=== PATIENT | female | born 1955 | race Caucasian/White ===

== ENCOUNTER 2024-07-25 06:00 | Day surgery (SDC) | payer MEDICARE, BC ==
[2024-07-24 16:01] LABS: BASOPHILS % (AUTO) 0.5 % (0-1); EOSINOPHILS # (AUTO) 0.1 X10'3 (0-0.9); EOSINOPHILS % (AUTO) 1.1 % (0-6); HEMATOCRIT 43.6 % (35.0-45.0); HEMOGLOBIN 14.4 g/dl (12.0-16.0); LYMPHOCYTES # (AUTO) 1.8 X10'3 (1.1-4.8); LYMPHOCYTES % (AUTO) 18.7 % (21-51); MEAN CORPUSCULAR HEMOGLOBIN 28.1 PG (27.0-31.0); MEAN CORPUSCULAR VOLUME 85.2 FL (78-98); MEAN PLATELET VOLUME 8.8 FL (7.4-10.4); MONOCYTES # (AUTO) 0.6 X10'3 (0-0.9); MONOCYTES % (AUTO) 5.9 % (2-12); NEUTROPHILS # (AUTO) 7.1 X10'3 (1.8-7.7); NEUTROPHILS % (AUTO) 73.8 % (42-75); PLATELET COUNT 307 X10'3 (140-440); RED BLOOD COUNT 5.11 X10'6 (4.20-5.60); RED CELL DISTRIBUTION WIDTH 14.5 % (11.5-14.5); WHITE BLOOD COUNT 9.6 X10'3 (4.5-11.0)
[2024-07-24 16:08] LABS: ALBUMIN 3.1 G/DL (3.4-5.0); ANION GAP 8 (8-16); BLOOD UREA NITROGEN 15 MG/DL (7-18); CALCIUM 9.1 MG/DL (8.5-10.1); CHLORIDE 106 MMOL/L (99-107); CREATININE 0.75 MG/DL (0.40-0.90); GLUCOSE 169 MG/DL (70-104); POTASSIUM 3.9 MMOL/L (3.5-5.1); SODIUM 141 MMOL/L (135-145); TOTAL CARBON DIOXIDE 27.1 MMOL/L (24-32); eGFR 77 ML/MIN
[2024-07-24 16:12] LABS: APTT 25 SECONDS (22-32); PROTHROMBIN TIME 10.2 SECONDS (9.0-12.0)
[~2024-07-25] VITALS: Ht 167.6 cm; Wt 119.0 kg
[2024-07-25] VITALS (14 sets, daily range): BP systolic 98–154; BP diastolic 48–66; PULSE 69–82; RESP 12–18; TEMP 97; O2SAT 92–100
[~2024-07-25 06:00] MED LIST: AMLO1TAB36 PO; ATOR10TA PO; CARV6.253 PO; CLOP75TA15 PO; DEXT1TAB13 PO; FURO-150 PO; INSU100V9 SQ; METF500T PO; NAPR220T67 PO
[2024-07-25] MEDS ORDERED: ATOR10TA70 PO (06:37)
[2024-07-25] MEDS ORDERED: CARV6.2555 PO (06:37)
[2024-07-25] MEDS ORDERED: LOSA100T58 PO (06:41)
[2024-07-25] MEDS ORDERED: AMLO5TAB16 PO (06:41)
[2024-07-25] MEDS ORDERED: LANTUS SQ (06:42)
[2024-07-25] MEDS ORDERED: CHOL10006 PO (06:44)
[2024-07-25] MEDS ORDERED: ASPI-529 (06:44)
[2024-07-25] MEDS ORDERED: EMPA25TA PO (06:44)
[2024-07-25] MEDS: LORazepam 0.5 MG tablet PO PRN (07:09)
[2024-07-25] MEDS: normal saline 1,000 ML IV SCH (07:10)
[2024-07-25] MEDS: diphenhydrAMINE 25mg capsule PO PRN (07:10)
[2024-07-25] MEDS ORDERED: LIDOcaine 1% (10mg/ml) 2ml vial ONE (07:18)
[2024-07-25] MEDS ORDERED: midazolam 1 mg/ML 2ml injection ONE (07:18)
[2024-07-25] MEDS ORDERED: verapamil 2.5 mg/ml inj IV ONE (07:18)
[2024-07-25] MEDS ORDERED: iohexol 350 MG/ML 50ML vial IV ONE (07:19)
[2024-07-25] MEDS ORDERED: heparin 1,000unit/ml 10ml vial 10 ML ONE (07:19)
[2024-07-25] MEDS ORDERED: iohexol 350MG/ML 100ml bottle IV ONE ×2 (07:19→08:09)
[2024-07-25] MEDS ORDERED: fentaNYL/PF 50MCG/1 ML 2ML syringe ONE (07:19)
[2024-07-25] MEDS ORDERED: nitroGLYCERIN 500mcg/5mL D5W 5 ML IV ONE ×2 (07:19→08:39)
[2024-07-25] MEDS ORDERED: heparin 25,000 UNIT/250ml bag 250 ML IV ONE (08:08)
[2024-07-25] MEDS ORDERED: clopidogrel 300mg tablet ONE (08:42)
[2024-07-25] MEDS ORDERED: aspirin 81mg tab.chew ONE (08:55)
[2024-07-25] MEDS ORDERED: aspirin 81mg tab.chew PO ONE (09:35)
[2024-07-25] MEDS ORDERED: aspirin 81mg, enteric-coated 1 TAB TABLET.DR PO ONE (09:35)
[2024-07-25] MEDS ORDERED: clopidogrel 300mg tablet PO ONE (09:35)
[2024-07-25] MEDS: potassium Cl 20 mEq SR tablet PO STA (12:11)
[2024-07-25] MEDS: magnesium oxide 400mg tablet PO ONE (12:11)
[2024-07-25] MEDS ORDERED: ATOR20TA PO (15:01)
[2024-07-25] MEDS ORDERED: CLOP75TA34 PO (15:01)
[2024-07-25] MEDS ORDERED: ASPI81TA52 PO (15:01)
[2024-07-25 15:29] LABS: ISTAT HGB MIX 13.9 g/dl (12.0-16.0); ISTAT Hct MIX 41 %PCV (35-45); ISTAT O2 SATURATION MIX VENOUS 91 % (60-80); ISTAT SOURCE BLNK
[2024-07-26] MEDS ORDERED: clopidogrel 75mg tablet PO SCH (08:00)
[2024-07-30 08:26] LABS: ISTAT HGB MIX 13.9 g/dl (12.0-16.0); ISTAT Hct MIX 41 %PCV (35-45); ISTAT O2 SATURATION MIX VENOUS 65 % (60-80); ISTAT SOURCE BLNK
== END 2024-07-25 17:05 | disposition home or self-care (01) ==
LOC: SSTAY O 06:00
PROVIDERS: ATTEND Internal Medicine Cardiovascular Disease
DX: I25.10 Atherosclerotic heart disease of native coronary artery without angina pectoris (principal); I49.3 Ventricular premature depolarization; I10 Essential (primary) hypertension; E11.9 Type 2 diabetes mellitus without complications; E78.5 Hyperlipidemia, unspecified; E66.3 Overweight; M19.90 Unspecified osteoarthritis, unspecified site; Z79.82 Long term (current) use of aspirin; Z79.02 Long term (current) use of antithrombotics/antiplatelets; Z79.84 Long term (current) use of oral hypoglycemic drugs; Z79.899 Other long term (current) drug therapy; Z90.710 Acquired absence of both cervix and uterus; Z95.5 Presence of coronary angioplasty implant and graft; Z98.890 Other specified postprocedural states; Z68.41 Body mass index [BMI] 40.0-44.9, adult
CPT/HCPCS: 36415; 80048; 82803; 85014; 85025; 85347; 85610; 85730; 93005; 93460; 99152; 99153; A6258; A6402; C1725; C1751; C1769; C1874; C1894; C9600; J1644; J2001; J2250; J3010; J3490; J7030; Q0163; Q9967; Z7610